=== PATIENT | female | born 1975 | race Caucasian/White ===

== ENCOUNTER 2018-02-13 15:54 | Emergency (ER) | payer SELFPAY ==
--- NOTE | 2018-02-13 16:42 | EDPHY ---
General - History Smoking Status: Never smoked Time Seen by Provider: 02/13/18 16:28 Narrative: CHIEF COMPLAINT: Weakness, numbness, tingling, bloating HISTORY OF PRESENT ILLNESS: Patient presents by private vehicle with complaints of numbness and tingling of the hands, bloating of the abdomen, weakness of the arms legs. She reports the symptoms starting approximately 1 month ago. This started as a perioral "kind of felt numb like after you go to the dentist." This has spread to the hands, feet, anterior thighs over the past 2 weeks. She describes difficulty with her train of thought, dropping items frequently from either hand. She has no numbness or tingling of the saddle. No incontinence of bowel bladder. She has had no headache at a time. She has had no neck, thoracic or lumbar back pain or injuries. She has have some abdominal bloating but no pain. She states difficulty eating and drinking at times from this bloating. She does report history of alcohol use and dependency, approximately 1 pt of vodka intermittently. She has no chest pain during any of this. No exertional complaints. No modifying factors. No other associated complaints or modifying factors. REVIEW OF SYSTEMS: 10 systems were reviewed and negative with the exception of the elements mentioned in the history of present illness. PCP: None locally SPECIALISTS: None PAST MEDICAL HISTORY: Orthopedic injury PAST SURGICAL HISTORY: Right ankle surgery 5 years ago SOCIAL HISTORY: Nonsmoker. Daily alcohol use. Denies drug use. Works locally as a beatty. Lives independently FAMILY HISTORY: Noncontributory EXAMINATION: General Appearance: Alert, no distress. Well appearing. Nontoxic. Conversing in complete sentences. Head: normocephalic, atraumatic Eyes: Pupils equal and round, no conjunctival pallor or injection. No nystagmus. No lid lag. ENT, Mouth: Mucous membranes moist. Airway widely patent. Uvula midline. Neck: Normal inspection, supple, non-tender Respiratory: Lungs are clear to auscultation Cardiovascular: Tachycardic rate and regular rhythm. No murmur Gastrointestinal: Abdomen is soft and nontender Back: non-tender, no bony abnormalities Neurological: GCS 15. A&O, strength is 5/5 in the shoulders, elbows, wrists, interossei, knees, ankles and great toes. Light sensory reportedly decreased in the hands dorsally, anterior thighs and dorsum of the feet. No wrist drop. No footdrop. Normal [id number]. No pronator drift. Skin: Warm and dry, no rash. Large tattoo on the back. No evidence of cellulitis. Extremities: Nontender, mild symmetric pedal edema, nonpitting. Symmetric range of motion extremities. Psychiatric: Mood and affect normal DIFFERENTIAL DIAGNOSES: Including but not limited to demyelination, electrolyte disturbance, anxiety, peripheral neuropathy, central neuropathy, neuronitis, dehydration, alcohol withdrawal, alcohol dependency MDM: 4:40 p.m. Bilateral paresthesia of hands, feet ,thighs accompanied by various neuropathies and reported weakness. No incontinence of bowel bladder. No back pain at any level. She has no meningismus. No headache at any time. No chest pain. Examination does reveal anxious patient in no acute distress but I cannot elicit any focal deficits. But she does report paresthesias in the areas above. Heart rate was elevated 122 when she arrived. She did not meet any other criteria for SIRS. I have ordered library monitor, EKG, laboratory studies including troponin. She is in no acute distress. 5:00 p.m. I discussed the case with Dr. Wheeler. He recommends MRI of the brain and cervical spine. Laboratory studies thus far reveal a CBC that is consistent with her alcohol dependency but no worrisome abnormalities. 7:15 p.m. Notified by radiologist Dr. Rincon. We discussed the MRI findings of the brain and cervical spine. Sphenoid disease. Degenerative changes of the cervical spine as documented. No demyelination or other acute changes. 7:25 p.m. Patient re-evaluated. She is feeling better but not resolved. Her heart rate has decreased. I have ordered thiamine and folate p.o., IV Ativan, 2nd L of fluid, GI cocktail. I will re-evaluate. She continues to complain of mild epigastric discomfort. 8:35 p.m. Patient re-evaluated. Her epigastric discomfort is significantly improved. Her peripheral paresthesias are significantly improved. She has no headache. No chest pain. We discussed her chronic findings on the MRI of the brain and cervical spine. We discussed her need for alcohol cessation, hydration, daily multivitamin, H2 charles and potential topical symptomatic medication for likely gastritis. I did offer admission to the hospital for further care and she has declined. We discussed risks, benefits and alternatives. I do feel it is reasonable for to be discharged home at this time. She exhibits no evidence of delirium tremens or encephalopathy. We discussed the above medications and the need to return here if he is not improve, or to return sooner for symptoms worsen. We also discussed follow-up with both a neurologist and her primary care physician, and I provided the information for this. I have answered all her questions. She is well-appearing and is asking to go home. She knows that she may return here should she change her mind and wish to pursue admission at any time. Discharged home stable condition. SUPERVISION: Patient was independently examined, but I discussed the case with my secondary supervising physician Dr. Wheeler CONSULTATION: None. Primary care and neurology referrals (Oziel Piedra) - Diagnostics Imaging Results: Imaging Impressions Brain MRI 02/13/18 17:25 Impression: 1. Mild midline cerebellar atrophy. No evidence for brain mass, demyelinating disease or hemorrhage. 2. Sphenoid sinus disease of unknown chronicity. 2. MRI of the Cervical Spine (Without Contrast) History: Generalized weakness, dropping items from both hands, paresthesias of the hands mouth and size Technique: Sagittal T1, FSE T2 and STIR images. Axial FSE T2 and GRE images. Findings: The craniocervical junction is normal. Cervical alignment is anatomic. The cervical neural canal is congenitally normal in size. CSF surrounds the cord at all levels. The cervical cord is normal intrinsically without evidence of cyst formation, cord edema, hemorrhage or demyelination. There is degenerative marrow on either side of C5-C6 disk space, which is mildly narrowed and associated with ventral and dorsal osteophytes. There are no acute compression abnormalities. There are mild disk bulges between C2 and C5 and moderate disk bulges between C7 and T2. At C5-C6 there is a moderate disk bulge or protrusion, eccentric to the left of midline. This does not cause cord flattening. This is associated with moderate left lateral recess and foraminal encroachment. There are bilateral uncovertebral joint spurs. There is more mild right medial foraminal encroachment secondary to uncovertebral joint spurring. At C6-C7 there is a mild disk bulge or protrusion eccentric to the right of midline that is associated with mild right medial foraminal encroachment secondary to a small disk protrusion in this region. The left foramen is widely patent. Impression: 1. No evidence for cord neoplasm or demyelination. 2. Degenerative disk disease described above with the worst foraminal encroachment being on the left at C5-C6 and on the right at C6-C7. Please see above. Results discussed with LEMUEL Kennedy at 7:14 PM. If there is concern for instability, then lateral cervical flexion and extension plain film x-rays might be useful. Cervical Spine MRI 02/13/18 17:25 Impression: 1. Mild midline cerebellar atrophy. No evidence for brain mass, demyelinating disease or hemorrhage. 2. Sphenoid sinus disease of unknown chronicity. 2. MRI of the Cervical Spine (Without Contrast) History: Generalized weakness, dropping items from both hands, paresthesias of the hands mouth and size Technique: Sagittal T1, FSE T2 and STIR images. Axial FSE T2 and GRE images. Findings: The craniocervical junction is normal. Cervical alignment is anatomic. The cervical neural canal is congenitally normal in size. CSF surrounds the cord at all levels. The cervical cord is normal intrinsically without evidence of cyst formation, cord edema, hemorrhage or demyelination. There is degenerative marrow on either side of C5-C6 disk space, which is mildly narrowed and associated with ventral and dorsal osteophytes. There are no acute compression abnormalities. There are mild disk bulges between C2 and C5 and moderate disk bulges between C7 and T2. At C5-C6 there is a moderate disk bulge or protrusion, eccentric to the left of midline. This does not cause cord flattening. This is associated with moderate left lateral recess and foraminal encroachment. There are bilateral uncovertebral joint spurs. There is more mild right medial foraminal encroachment secondary to uncovertebral joint spurring. At C6-C7 there is a mild disk bulge or protrusion eccentric to the right of midline that is associated with mild right medial foraminal encroachment secondary to a small disk protrusion in this region. The left foramen is widely patent. Impression: 1. No evidence for cord neoplasm or demyelination. 2. Degenerative disk disease described above with the worst foraminal encroachment being on the left at C5-C6 and on the right at C6-C7. Please see above. Results discussed with LEMUEL Kennedy at 7:14 PM. If there is concern for instability, then lateral cervical flexion and extension plain film x-rays might be useful. - Objective Vital Signs: Initial Vital Signs Temperature (C) 99.5 F 02/13/18 16:15 Heart Rate 122 H 02/13/18 16:15 Respiratory Rate 16 02/13/18 16:15 Blood Pressure 153/103 H 02/13/18 16:15 O2 Sat (%) 96 02/13/18 16:15 O2 Delivery Mode Room Air Allergies/Adverse Reactions: No Known Allergies Allergy (Unverified 02/13/18 16:15) Home Medications: Medication Instructions Recorded LORazepam [Ativan] 1 mg PO Q8 PRN #5 tablet 02/13/18 Sucralfate [Carafate Oral Liquid 10 ml PO QID PRN #240 ml 02/13/18 100 mg/ml] Laboratory Results: Laboratory Results 02/13/18 17:05 02/13/18 17:05 02/13/18 02/13/18 02/13/18 17:12 17:05 17:05 WBC RBC Hgb Hct MCV MCH MCHC RDW Plt Count MPV Neut % (Auto) Lymph % (Auto) [place] % (Auto) Eos % (Auto) Baso % (Auto) Nucleat RBC Rel Count Absolute Neuts (auto) Absolute Lymphs (auto) Absolute Monos (auto) Absolute Eos (auto) Absolute Basos (auto) Absolute Nucleated RBC Immature Gran % Immature Gran # Sodium Potassium Chloride Carbon Dioxide Anion Gap BUN Creatinine Estimated GFR Glucose Calcium Magnesium 1.5 mg/dL L mg/dL (1.6-2.3) Total Bilirubin Conjugated Bilirubin Unconjugated Bilirubin AST ALT Alkaline Phosphatase POC Troponin I 0.00 ng/mL ng/mL (0.00-0.08) Total Protein Albumin Lipase Beta HCG, Qual NEGATIVE Ethyl Alcohol 02/13/18 02/13/18 17:05 17:05 WBC 9.26 10^3/uL 10^3/uL (3.80-9.50) RBC 4.41 10^6/uL 10^6/uL (4.18-5.33) Hgb 16.1 g/dL g/dL (12.6-16.3) Hct 45.5 % % (38.0-47.0) MCV 103.2 fL H fL (81.5-99.8) MCH 36.5 pg H pg (27.9-34.1) MCHC 35.4 g/dL g/dL (32.4-36.7) RDW 14.6 % % (11.5-15.2) Plt Count 448 10^3/uL H 10^3/uL (150-400) MPV 9.8 fL fL (8.7-11.7) Neut % (Auto) 64.5 % % (39.3-74.2) Lymph % (Auto) 24.2 % % (15.0-45.0) [place] % (Auto) 10.6 % % (4.5-13.0) Eos % (Auto) 0.0 % L % (0.6-7.6) Baso % (Auto) 0.5 % % (0.3-1.7) Nucleat RBC Rel Count 0.0 % % (0.0-0.2) Absolute Neuts (auto) 5.97 10^3/uL 10^3/uL (1.70-6.50) Absolute Lymphs (auto) 2.24 10^3/uL 10^3/uL (1.00-3.00) Absolute Monos (auto) 0.98 10^3/uL H 10^3/uL (0.30-0.80) Absolute Eos (auto) 0.00 10^3/uL L 10^3/uL (0.03-0.40) Absolute Basos (auto) 0.05 10^3/uL 10^3/uL (0.02-0.10) Absolute Nucleated RBC 0.00 10^3/uL 10^3/uL (0-0.01) Immature Gran % 0.2 % % (0.0-1.1) Immature Gran # 0.02 10^3/uL 10^3/uL (0.00-0.10) Sodium 134 mEq/L L mEq/L (135-145) Potassium 4.1 mEq/L mEq/L (3.3-5.0) Chloride 95 mEq/L L mEq/L (97-110) Carbon Dioxide 27 mEq/l mEq/l (22-31) Anion Gap 12 mEq/L mEq/L (6-14) BUN 4 mg/dL L mg/dL (7-23) Creatinine 0.4 mg/dL L mg/dL (0.6-1.0) Estimated GFR > 60 Glucose 123 mg/dL H mg/dL (70-100) Calcium 10.1 mg/dL mg/dL (8.5-10.4) Magnesium Total Bilirubin 1.2 mg/dL mg/dL (0.1-1.4) Conjugated Bilirubin 0.3 mg/dL mg/dL (0.0-0.5) Unconjugated Bilirubin 0.9 mg/dL mg/dL (0.0-1.1) AST 90 IU/L H IU/L (14-46) ALT 73 IU/L H IU/L (9-52) Alkaline Phosphatase 198 IU/L H IU/L (38-126) POC Troponin I Total Protein 7.4 g/dL g/dL (6.3-8.2) Albumin 3.9 g/dL g/dL (3.5-5.0) Lipase 246 IU/L IU/L (23-300) Beta HCG, Qual Ethyl Alcohol < 10 mg/dL mg/dL (0-10) Medications Given: Discontinued Medications Al Hydroxide/Mg Hydroxide (Maalox Susp) 30 ml PO ONCE ONE Stop: 02/13/18 19:50 Last Admin: 02/13/18 20:03 Dose: 30 ml Folic Acid (Folic Acid) 1 mg PO EDNOW ONE Stop: 02/13/18 19:17 Last Admin: 02/13/18 20:03 Dose: 1 mg Hyoscyamine Sulfate (Levsin, Hyomax-Sl) 0.25 mg PO ONCE ONE Stop: 02/13/18 19:50 Last Admin: 02/13/18 20:02 Dose: 0.25 mg Sodium Chloride (Ns) 1,000 mls @ 0 mls/hr IV EDNOW ONE; Wide Open PRN Reason: Protocol Stop: 02/13/18 16:44 Last Admin: 02/13/18 17:02 Dose: 1,000 mls Sodium Chloride (Ns) 1,000 mls @ 0 mls/hr IV EDNOW ONE; Wide Open PRN Reason: Protocol Stop: 02/13/18 17:37 Last Admin: 02/13/18 20:02 Dose: 1,000 mls Lidocaine (Lidocaine 2% Viscous) 15 ml PO ONCE ONE Stop: 02/13/18 19:50 Last Admin: 02/13/18 20:03 Dose: 15 ml Lorazepam (Ativan Injection) 1 mg IVP EDNOW ONE Stop: 02/13/18 16:44 Last Admin: 02/13/18 17:03 Dose: 1 mg Lorazepam (Ativan Injection) 1 mg IVP EDNOW ONE Stop: 02/13/18 19:50 Last Admin: 02/13/18 20:04 Dose: 1 mg Pantoprazole Sodium (Protonix) 40 mg IVP EDNOW ONE Stop: 02/14/18 19:50 Last Admin: 02/13/18 20:41 Dose: 40 mg Thiamine HCl (Vitamin B-1) 100 mg PO EDNOW ONE Stop: 02/13/18 19:17 Last Admin: 02/13/18 20:06 Dose: 100 mg Point of Care Test Results: Chemistry 02/13/18 17:12 POC Troponin I 0.00 ng/mL ng/mL (0.00-0.08) Departure - Departure Disposition: Home, Routine, Self-Care Clinical Impression: Dehydration Gastritis Qualifiers: Gastritis type: unspecified gastritis Chronicity: acute Gastritis bleeding: without bleeding Qualified Code(s): K29.00 - Acute gastritis without bleeding Peripheral neuropathy Qualifiers: Peripheral neuropathy type: polyneuropathy, unspecified Qualified Code(s): G62.9 - Polyneuropathy, unspecified Alcohol dependence Qualifiers: Substance use status: uncomplicated Qualified Code(s): F10.20 - Alcohol dependence, uncomplicated Condition: Good Instructions: Gastritis (ED), At-Risk Alcohol Use (ED), Peripheral Neuropathy ( ED) Additional Instructions: 1. Pepcid [id number], 20 mg twice daily for 10-14 days 2. Carafate as prescribed as needed for abdominal pain 3. Ativan as prescribed as needed for anxiety 4. Recommend alcohol cessation 5. Contact the on-call primary care physician and neurologist as provided 6. Return to emergency department if you do not have complete resolution of her symptoms within 24 hr, or sooner for any worsening of her symptoms, seizure activity, headache, fever, confusion, chest pain or shortness of breath 7. Daily multivitamin and increase water intake Referrals: Maxi Crisostomo MD [Medical Doctor] - As per Instructions Sparkle Montano MD [Medical Doctor] - As per Instructions Prescriptions: LORazepam [Ativan] 1 mg PO Q8 PRN #5 tablet PRN Reason: Anxiety Sucralfate [Carafate Oral Liquid 100 mg/ml] 10 ml PO QID PRN #240 ml PRN Reason: abdominal pain
[2018-02-13] MEDS ORDERED: NS 1,000 ML IV ONE ×2 (16:43→17:36)
[2018-02-13] MEDS ORDERED: LORazepam 2 MG/ML INJ IVP ONE ×2 (16:43→19:49)
--- NOTE | 2018-02-13 17:10 | CPEKG ---
Test Reason : OPEN Blood Pressure : / mmHG Vent. Rate : 116 BPM Atrial Rate : 115 BPM P-R Int : 135 ms QRS Dur : 081 ms QT Int : 358 ms P-R-T Axes : 035 034 026 degrees QTc Int : 498 ms Sinus tachycardia Confirmed by Anmol Wheeler ([id number]) on 02/13/2018 5:10:14 PM Referred By: Confirmed By:Anmol Wheeler
[2018-02-13 17:17] LABS: PLATELET COUNT 448 10^3/uL (150-400)
[2018-02-13] MEDS ORDERED: THIAMINE HCL 100 MG TAB PO ONE (19:16)
[2018-02-13] MEDS ORDERED: FOLIC ACID 1 MG TAB PO ONE (19:16)
[2018-02-13] MEDS ORDERED: LIDOCAINE 2% VISCOUS 15 ML UDCUP PO ONE (19:49)
[2018-02-13] MEDS ORDERED: MAG HYDROX/AL HYDROX/SIMETH 30 ML UDCUP PO ONE (19:49)
[2018-02-13] MEDS ORDERED: HYOSCYAMINE SULFATE 0.125 MG TAB PO ONE (19:49)
[2018-02-13] MEDS ORDERED: PANTOPRAZOLE SODIUM 40 MG VIAL ONE (20:34)
[2018-02-13 21:32] VITALS: BP 154/108
[2018-02-14] MEDS ORDERED: PANTOPRAZOLE SODIUM 40 MG VIAL IVP ONE (19:49)
== END 2018-02-13 21:45 | disposition home or self-care (01) ==
DX: E86.0 Dehydration (principal); K29.70 Gastritis, unspecified, without bleeding; G62.9 Polyneuropathy, unspecified; F10.20 Alcohol dependence, uncomplicated
CPT/HCPCS: 84484-PO; 96374; G0480; J2060